=== PATIENT | male | born 1955 | race Caucasian/White ===

== ENCOUNTER → 2023-06-01 13:38 | Outpatient (BNVA) | payer MEDICARE, MEDICAID, SELFPAY | PROVIDERS: PCP Family Medicine; Referring Provider Family Medicine; Visit Provider Physician Assistant Surgical | DX: M35.1 Other overlap syndromes (principal); R91.8 Other nonspecific abnormal finding of lung field; J84.9 Interstitial pulmonary disease, unspecified; I25.10 Atherosclerotic heart disease of native coronary artery without angina pectoris; I25.84 Coronary atherosclerosis due to calcified coronary lesion | CPT/HCPCS: 99214 ==

== ENCOUNTER → 2023-08-31 00:29 | Outpatient (CLI) | payer MEDICARE, MEDICAID, SELFPAY ==
--- NOTE | 2023-08-31 08:12 | DI.NM_ITS ---
APPROVED REPORT Exam: Pharmacologic Patient Location: Out-Patient Room/Bed: Stress Nurse: Tiesha Taveras RN Ordering Provider:MARITO LOWRY, Contact Number: BMI: 32.48 Baseline Rhythm: Atrial Fibrillation Indications: CAD, BELL, Medical History Medical History: Coronary artery calcification, former smoker, RA, afib, T2DM, bipolar disorder, inte rstital lung disease, HTN, BHASKAR, obesity Cardiac Medications: Apixaban, aspirin, atorvastatin, amlodipine, hydrochlorothiazide, metformin, met oprolol succinate, omeprazole Allergies: Simvastatin, lisinopril, wellbutrin, lamotrigine Cardiac Risk Factors: Family hx, HTN, HLD, CVD, diabetes, COPD, former smoker, obesity Previous Cardiac Procedures: None Pretest Chest Pain Characteristics: None Exercise History: Sedentary Physical Disabilities: Legs Lung Sounds: Clear to auscultation Heart Sounds: Irregular Stress Test Details Test: Pharmacologic stress was paired with low level exercise. Reason for pharmacologic stress test: physical limitation. Nuclear Acquisition: Rest Tc-99m/Stress Tc-99m 1 day Rest Isotope: Tc-99m Sestamibi. Dose: 10.0 Date: 08/31/2023 Injection Time: 1050 Stress Isotope: Tc-99m Sestamibi. Dose: 30.0 Date: 08/31/2023 Injection Time: 1327 HR Resting HR Supine: 58 bpm Max Heart Rate (APMHR): 150.081212 bpm Resting HR Standin bpm Target HR (85% APMHR): 127.657728 bpm Max HR Achieved: 103 bpm % of APMHR: 68.67 Recovery HR: 59 bpm BP Resting BP Supine: 132/80 mmHg Resting BP Standin/90 mmHg Max BP: 160/69 mmHg Recovery BP: 130/80 mmHg ECG Resting ECG: Atrial Fibrillation Stress ECG: Atrial Fibrillation ST Change: Nondiagnostic low heart rate Recovery ECG: Atrial Fibrillation Recovery ST Change: Nondiagnostic low heart rate Clinical Stress Symptoms: Mild SOB Angina Score: None Rate Pressure Product: 15706 Stress ECG Conclusion 1. Resting EKG showed atrial fibrillation, diffuse ST-T abnormalities, late transition 2. Patient underwent testing using pharmacologic stress with regadenoson 3. Peak heart rate achieved was 69% of maximal predicted for age 4. The electrocardiographic portion of the test was nondiagnostic 5. See MPI report Stress Test Summary STAGE HR BP SpO2 Symptoms NOTES Supine 58 132/80 Standing 61 140/90 1 min post Lexiscan injection 90 160/69 98 Mild SOB 3 min post Lexiscan injection 60 158/89 6 min post Lexiscan injection 59 130/80 97 All symptoms resolved MPI Conclusion There is no myocardial ischemia. There is a small fixed inferobasal defect Fraction 50% Radiologist Interpretation Radiologist agrees with [facility] Interpretation. Radiologist Interpretation by: Park Munson MD Interpretation Date/Time: 09/04/2023 15:21:43
[2023-08-31] MEDS: Regadenoson 0.4 MG/5 ML SYR IVP (13:42)
== END ==
PROVIDERS: PCP Family Medicine; Visit Provider Physician Assistant Surgical
DX: I25.10 Atherosclerotic heart disease of native coronary artery without angina pectoris (principal); R06.00 Dyspnea, unspecified
CPT/HCPCS: 78452; 93016; 93017; J2785

== ENCOUNTER → 2023-10-25 12:53 | Outpatient (BNVA) | payer MEDICARE, MEDICAID, SELFPAY | PROVIDERS: PCP Family Medicine; Referring Provider Family Medicine; Visit Provider Podiatrist | DX: L60.2 Onychogryphosis (principal); E11.51 Type 2 diabetes mellitus with diabetic peripheral angiopathy without gangrene; M06.9 Rheumatoid arthritis, unspecified; Z79.01 Long term (current) use of anticoagulants; L60.3 Nail dystrophy; L85.1 Acquired keratosis [keratoderma] palmaris et plantaris; R20.8 Other disturbances of skin sensation; R09.89 Other specified symptoms and signs involving the circulatory and respiratory systems; R23.4 Changes in skin texture; R23.8 Other skin changes; L60.8 Other nail disorders; Z74.09 Other reduced mobility; M20.11 Hallux valgus (acquired), right foot; M20.12 Hallux valgus (acquired), left foot; L65.9 Nonscarring hair loss, unspecified | CPT/HCPCS: 11721 ==

== ENCOUNTER → 2023-11-28 14:38 | Outpatient (BNVA) | payer MEDICARE, MEDICAID, SELFPAY | PROVIDERS: PCP Family Medicine; Referring Provider Family Medicine; Visit Provider Physician Assistant Surgical | DX: M35.1 Other overlap syndromes (principal); J84.9 Interstitial pulmonary disease, unspecified; R91.8 Other nonspecific abnormal finding of lung field; I25.10 Atherosclerotic heart disease of native coronary artery without angina pectoris; I25.84 Coronary atherosclerosis due to calcified coronary lesion | CPT/HCPCS: 99214 ==

== ENCOUNTER → 2024-03-06 13:19 | Outpatient (BNVA) | payer MEDICARE, MEDICAID, SELFPAY | PROVIDERS: PCP Family Medicine; Referring Provider Family Medicine; Visit Provider Podiatrist | DX: E11.51 Type 2 diabetes mellitus with diabetic peripheral angiopathy without gangrene (principal); L60.2 Onychogryphosis; D64.9 Anemia, unspecified; M06.9 Rheumatoid arthritis, unspecified; B35.1 Tinea unguium; L60.3 Nail dystrophy; Z79.01 Long term (current) use of anticoagulants; R09.89 Other specified symptoms and signs involving the circulatory and respiratory systems; R20.8 Other disturbances of skin sensation; R23.8 Other skin changes; R20.2 Paresthesia of skin; L84 Corns and callosities | CPT/HCPCS: 11056; 11721 ==

== ENCOUNTER → 2024-07-17 13:00 | Outpatient (BNVA) | payer MEDICARE, MEDICAID, SELFPAY | PROVIDERS: PCP Family Medicine; Referring Provider Family Medicine; Visit Provider Podiatrist | DX: E11.51 Type 2 diabetes mellitus with diabetic peripheral angiopathy without gangrene (principal); L60.2 Onychogryphosis; D64.9 Anemia, unspecified; M06.9 Rheumatoid arthritis, unspecified; R09.89 Other specified symptoms and signs involving the circulatory and respiratory systems; R20.8 Other disturbances of skin sensation; R23.4 Changes in skin texture; R23.8 Other skin changes; L60.3 Nail dystrophy; L60.8 Other nail disorders; L85.8 Other specified epidermal thickening; R20.2 Paresthesia of skin | CPT/HCPCS: 11056; 11721 ==

== ENCOUNTER → 2024-07-25 11:45 | Outpatient (BNVA) | payer MEDICARE, MEDICAID, SELFPAY | PROVIDERS: PCP Family Medicine; Referring Provider Family Medicine; Visit Provider Physician Assistant Surgical | DX: M35.1 Other overlap syndromes (principal); R91.8 Other nonspecific abnormal finding of lung field; J84.9 Interstitial pulmonary disease, unspecified; I25.10 Atherosclerotic heart disease of native coronary artery without angina pectoris; I25.84 Coronary atherosclerosis due to calcified coronary lesion | CPT/HCPCS: 99214 ==

== ENCOUNTER → 2024-11-12 13:51 | Outpatient (BNVA) | payer MEDICARE, MEDICAID, SELFPAY | PROVIDERS: PCP Family Medicine; Referring Provider Family Medicine; Visit Provider Podiatrist | DX: L60.2 Onychogryphosis (principal); E11.51 Type 2 diabetes mellitus with diabetic peripheral angiopathy without gangrene; E11.42 Type 2 diabetes mellitus with diabetic polyneuropathy; D64.9 Anemia, unspecified; M06.9 Rheumatoid arthritis, unspecified; Z79.01 Long term (current) use of anticoagulants; R09.89 Other specified symptoms and signs involving the circulatory and respiratory systems; R20.8 Other disturbances of skin sensation; R23.4 Changes in skin texture; L60.3 Nail dystrophy; L60.8 Other nail disorders; R20.2 Paresthesia of skin | CPT/HCPCS: 11721 ==

== ENCOUNTER → 2025-01-22 13:53 | Outpatient (BNVA) | payer MEDICARE, MEDICAID, SELFPAY | PROVIDERS: PCP Family Medicine; Referring Provider Family Medicine; Visit Provider Physician Assistant Surgical | DX: M35.1 Other overlap syndromes (principal); R91.8 Other nonspecific abnormal finding of lung field; J84.9 Interstitial pulmonary disease, unspecified; I25.10 Atherosclerotic heart disease of native coronary artery without angina pectoris; I25.84 Coronary atherosclerosis due to calcified coronary lesion; Z87.891 Personal history of nicotine dependence | CPT/HCPCS: 99214 ==

== ENCOUNTER → 2025-02-17 13:56 | Outpatient (BNVA) | payer MEDICARE, MEDICAID, SELFPAY | PROVIDERS: PCP Family Medicine; Referring Provider Family Medicine; Visit Provider Podiatrist | DX: L60.2 Onychogryphosis (principal); E11.42 Type 2 diabetes mellitus with diabetic polyneuropathy; E11.51 Type 2 diabetes mellitus with diabetic peripheral angiopathy without gangrene; D64.9 Anemia, unspecified; M06.9 Rheumatoid arthritis, unspecified; Z79.01 Long term (current) use of anticoagulants; R09.89 Other specified symptoms and signs involving the circulatory and respiratory systems; R20.8 Other disturbances of skin sensation; R23.4 Changes in skin texture; R23.8 Other skin changes; L60.8 Other nail disorders; L85.8 Other specified epidermal thickening; L60.3 Nail dystrophy | CPT/HCPCS: 11721 ==

== ENCOUNTER 2025-02-28 11:39 | Day surgery (SDC) | payer MEDICARE, MEDICAID, SELFPAY ==
[2025-02-28 11:45] VITALS: BP 150/98; PULSE 76; RESP 18; TEMP 37; O2SAT 98
--- NOTE | 2025-02-28 12:03 | W.ANESPRE ---
General Info Date of Service Date Performed: 02/28/25 Height: 5 ft 9 in Weight: 102.965 kg Body Mass Index (BMI): 33.5 Surgical Procedure: Operation Date: 02/28/25 14:40 Proposed Procedure Side Surgeon p Cataract Extraction with IOL Implant Right Anoop Beckford MD Meds Allergies and Home Medications Allergies Allergy/AdvReac Type Severity Reaction Status Date / Time divalproex sodium Allergy Unknown Unknown Verified 02/28/25 12:13 lisinopril Allergy Unknown Other (See Verified 02/27/25 10:17 Comment) Muwmqbc-NOT-ShO Reductase Allergy Unknown Unknown Verified 02/28/25 12:13 Inhibitor simvastatin (From Zocor) Allergy ? elevated Verified 02/28/25 12:13 CPK levels bupropion (From Wellbutrin) AdvReac Unknown Other (See Verified 02/28/25 12:13 Comment) lamotrigine (From Lamictal) AdvReac Unknown rash Verified 02/28/25 12:13 Home Medication ?Medication ?Instructions ?Recorded alcohol swabs (Alcohol Prep Pads) pad topical 12/10/21 amlodipine 10 mg tablet 10 mg PO DAILY 12/10/21 apixaban 5 mg tablet (Eliquis) 5 mg PO BID 12/10/21 blood sugar diagnostic (Contour 12/10/21 Next Test Strips) cholecalciferol (vitamin D3) 50 50 mcg PO DAILY 12/10/21 mcg (2,000 unit) capsule folic acid 1 mg tablet 1 mg PO DAILY 12/10/21 lancets (Microlet Lancet) 12/10/21 pen needle, diabetic 31 gauge x 12/10/21 1/4 (Unifine Pentips) pen needle, diabetic 31 gauge x 12/10/21 5/16 (BD Ultra-Fine Short Pen Needle) tuberculin-allergy syringes 1 mL 12/10/21 26 gauge x 3/8 (BD Tuberculin Syringe) acetaminophen 650 mg 650 mg PO Q12H 04/26/22 tablet,extended release (Mapap Arthritis Pain) atorvastatin 20 mg tablet 20 mg PO DAILY 04/26/22 carbamazepine 200 mg 200 mg PO QPM 04/27/22 capsule,extended release [id number] (Carbatrol) hydrochlorothiazide 12.5 mg capsule 25 mg PO DAILY 08/19/22 insulin aspart U-100 100 unit/mL 12 unit subcut QACDINNER 12/01/22 (3 mL) subcutaneous pen (Novolog FlexPen U-100 Insulin aspart) insulin detemir U-100 100 unit/mL See Rx Instructions subcut BID 12/01/22 (3 mL) subcutaneous pen (Levemir FlexTouch U-100 Insulin) albuterol sulfate 90 mcg/actuation 2 puff inhalation QID PRN 11/28/23 aerosol inhaler shortness of breath or wheezing #8.5 grams cyanocobalamin (vitamin B-12) 500 500 mcg PO DAILY 07/22/24 mcg lozenges hydralazine 50 mg tablet 50 mg PO BID 07/22/24 hydroxychloroquine 200 mg tablet 200 mg PO .COMPLEX 07/22/24 metoprolol succinate 100 mg 100 mg PO DAILY 07/22/24 tablet,extended release 24 hr tirzepatide 2.5 mg/0.5 mL 2.5 mg subcut QWEEK 11/12/24 subcutaneous pen injector (Inder) omeprazole 40 mg capsule,delayed 40 mg PO DAILY 01/22/25 release fluticasone propionate 45 2 puff inhalation BID 02/04/25 mcg-salmeterol 21 mcg/actuation HFA inhaler (Advair HFA) fluticasone propionate 50 2 spray intranasal DAILY 02/04/25 mcg/actuation nasal spray,suspension losartan 100 mg tablet 100 mg PO DAILY 02/04/25 magnesium chloride 71.5 mg 71.5 mg PO DAILY 02/04/25 (magnesium chloride) tablet,delayed release (Slow-Mag) melatonin 5 mg tablet 5 mg PO HS PRN 02/04/25 methotrexate (PF) 25 mg/0.5 mL 25 mg subcut QWEEK 02/04/25 subcutaneous auto-injector risperidone 1 mg tablet 1 mg PO DAILY 02/04/25 ropinirole 0.25 mg tablet 0.25 mg PO QHS 02/17/25 Current Visit Medications: Current Medications Generic Name Dose Route Start Last Admin Trade Name Freq PRN Reason Stop Dose Admin Acetaminophen 1,000 mg 02/28/25 06:00 Acetaminophen 500 Mg Tab PO 03/30/25 05:59 Q4H PRN PRN Balanced Salt Solution 500 ml 02/28/25 06:00 Balanced Salt Soln.-Plus 500 Ml Bag OP 03/30/25 05:59 DIRECTED ANITA Miscellaneous Medication 0 ml 02/28/25 06:00 Prednisolone 1%, Moxifloxacin 0.5%, Bromfenac 0.09% 5.6ml Btl OD 03/30/25 05:59 DIRECTED [facility] Miscellaneous Medication 0 ml 02/28/25 06:00 Tropicam./Phenyleph. (1/2.5%) 5 Ml Btl OD 03/30/25 05:59 DIRECTED [facility] Tetracaine HCl 0 ml 02/28/25 06:00 Tetracaine 0.5% 4 Ml Btl OD 03/30/25 05:59 DIRECTED [facility] PFSH Active Problems Active Problems: Problem Status Onset Code Nuclear age-related cataract, right eye Acute H25.11 Increased creatine kinase level Acute R74.8 Drug-induced immunodeficiency Acute D84.821 Vitamin B12 deficiency Acute E53.8 Diabetic neuropathy Acute E11.40 Type 2 diabetes mellitus with diabetic peripheral angiopathy without gangrene Acute E11.51 Onychogryposis of toenail Acute L60.2 Coronary artery calcification Acute I25.10, I25.84 Interstitial lung disease Acute J84.9 Multiple pulmonary nodules Acute R91.8 Mixed connective tissue disease Acute M35.1 Depression Chronic F32.A Hypertension Chronic I10 Arthritis of right ankle Acute M19.071 Dysphagia Acute R13.10 Dyspnea Acute R06.00 Tachycardia Acute R00.0 Generalized hyperhidrosis Acute R61 Daytime somnolence Acute R40.0 Polyalgia Acute M79.89 Rosacea Acute L71.9 Diverticulosis of small intestine Acute K57.10 Gastritis Acute K29.70 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 History of colonoscopy (~06/2024) 06/22/15 History of lung surgery 07/26/16- Lower left lobe fine needle aspiration. H/O endoscopy (~11/2019) 04/13/17 Tobacco Smoking/Tobacco Use Status: Former Tobacco Use Vital Signs and Lab Results Vital Signs Most Recent Vital Signs in EMR: Temp Pulse Resp BP Pulse Ox 37 C 76 18 150/98 H 98 02/28/25 11:45 02/28/25 11:45 02/28/25 11:45 02/28/25 11:45 02/28/25 11:45 Imaging and Studies Imaging and Studies Study information below may be from another EMR and interpreted by another provider. Please see original notes in EMR for more complete details. Stress Test Summary: Stress: Myocardial Lexiscan 12/03/2024 negative for ischemia normal LV systolic function. Echocardiogram Summary: Echo: 12/05/2024 left ventricle of normal size wall thickness is mildly increased left ventricle size and systolic functions are normal left ventricle ejection fraction is estimated visually at 65%. There is grade 1 Bystolic to function. Left atrium is normal right atrium mildly dilated. There is no hemodynamically significant valve disease. The PASP could not be assessed on this study. 03/2023:Summary: ======== undefined undefined 1. Global systolic function is preserved with an EF of 55-60% with normal wall motion. Diastolic indices are technically indeterminate. Prior echo, 05/20/2022, EF = 65-70% with segmental wall motion abnormalities. 2. Left atrium: severely dilated. Right atrium: normal in size. 3. There is mild to moderate (1-2+/4+) mitral regurgitation. 4. There is no other hemodynamically significant valve disease. 5. There is evidence of mild pulmonary hypertension. PA pressures are elevated, estimated at 41 mmHg. Prior echo, PAP could not be obtained due to inadequate TR jet. undefined Other Study Summary:: 03/12: Worsening ILD, severe coronary artery calcification. Anesthesia Assessment and Plan Anesthesia History Personal History: No History of Anesthesia Complications Family History: No Family History of Anesthesia Complications Exercise Tolerance Exercise Tolerance: Metabolic Equivalents<4 Pertinent Negatives Pertinent Negatives: No Symptoms of GERD Cardiac & Pulmonary Exam Cardiac Exam: Normal S1/S2 Heart Sounds Pulmonary Exam: Clear Bilateral Breath Sounds Implantable Cardiac Device Does patient have a Pacemaker or an ICD?: No Airway Exam Known Difficult Airway: No Mallampati Class: 2 Mouth Opening: Normal (> 3cm) Thyromental Distance: Greater than 3 cm Neck Range of Motion: Full ROM Neck Circumference: Normal Teeth Condition: Normal Dentition ASA Classification ASA Score: ASA 3 Emergency Case?: No NPO Status NPO Status: NPO Clears >2 hours, Solids >8 hours Anesthesia Plan Resuscitation Status: Full Code Anesthesia Technique: MAC Anesthesia Airway Planned: Natural Airway Monitors Used: Standard Monitors Preoperative Comments:: Pt. presents with SOB as his baseline and some chest pain/pressure. This is non radiating, not made better or worse with movement/breathing/activity without radiation and has been ongoing for a very long time per patient. After chart review, pt. has had stress test (negative) and echo this year that was not concerning. Was seen in ED earlier in year for same complaint and had negative workup with GERD diagnosis. Discussed risk (VA/) with patient who is having ablation next week given an unclear and much history. Discussed although I do not think this is cardiac in nature requiring an ED visit now and patient agrees given chronicity of symptoms. Once he goes home if he feels worse or symptoms do worsen, despite being the same now for weeks, he should be seen in ED or call 911 which he understands.
[2025-02-28 12:05] VITALS: BMI 33.5
[2025-02-28] MEDS: Tropicam./Phenyleph. (1/2.5%) 5 ML BTL OD ×3 (12:31→12:38)
[2025-02-28] MEDS: Duovisc Viscoelastic System EACH 1 EACH (12:55)
[2025-02-28] MEDS: Lidocaine 1% Pres-Free 5 ML VIAL (12:58)
[2025-02-28] MEDS: Phenylephrine/Lidocaine (15/10) MG/ML 1 ML VIAL (12:58)
[2025-02-28] MEDS: Moxifloxacin-PF 1 MG/ML VIAL (12:58)
[2025-02-28] MEDS: Povidone-Iodine Ophth 30 ML BTL (12:59)
[2025-02-28] MEDS: Balanced Salt Soln.-PLUS 500 ML BAG OP ×2 (12:59→13:00)
[2025-02-28] MEDS: Prednisolone 1%, Moxifloxacin 0.5%, Bromfenac 0.09% 5.6ML BTL OD (13:00)
[2025-02-28] MEDS: Tetracaine 0.5% 4 ML BTL OD (13:01)
--- NOTE | 2025-02-28 13:13 | ROE_ITS ---
Operative Note Operative Note PRE-OP DIAGNOSIS: Nuclear cataract, right eye POST-OP DIAGNOSIS: same PROCEDURE: Cataract extraction using phacoemulsification with intraocular lens implant, right eye SURGEON: Anoop Beckford ANESTHESIA TYPE: Local By Surgeon and MAC Refer to Anesthesia Record ESTIMATED BLOOD LOSS: 0 PATHOLOGY: none sent COMPLICATIONS: None Patient was transported to: same day Patient's condition: stable Implants: Sp Clareon [id number] Indications: Progressive decreased vision due to cataract, right eye Procedure Description: CATARACT SURGERY OPERATIVE REPORT PREOPERATIVE DIAGNOSIS: Nuclear cataract, right eye POSTOPERATIVE DIAGNOSIS: Same OPERATION: Cataract extraction using phacoemulsification with posterior chamber intraocular lens implant, right eye. IOL: IOL Staff Therapist/Model: Sp Clareon [id number] IOL Power: + 17.0 diopters IOL Serial Number: [id number] Optic Diameter: 6.0mm Haptic/Overall Diameter: 13.0mm PHACO INFO: Sp [employer] Vision System with OZil and Active Fluidics Cumulative Dispersed Energy (CDE): 3.76 seconds SURGEON: Anoop Beckford MD, JUDE ANESTHESIA: Monitored Anesthesia Care (MAC), with local sub-tenon's anesthetic infiltration COMPLICATIONS: None SPECIMENS: None INDICATIONS FOR PROCEDURE: The patient is a 69-year-old male with history of diminished visual acuity in his right eye secondary to the development of nuclear cataract. He is significantly symptomatic that he desires cataract surgery and attempt to improve and maximize his vision. The option of cataract surgery was offered to the patient and he wished to proceed. See office notes for detailed information. PROCEDURE: The correct surgical eye was identified and marked as the right eye and the pupil was dilated in the preoperative area using mydriatics and cycloplegics. The dilated pupil size was 7.0 mm. The patient elected to proceed without oral sedation. The patient was brought to the operating room where cardiopulmonary monitoring was instituted and surgical time-out was performed, confirming the correct operative eye and IOL power. Topical anesthesia was administered and ophthalmic povidone-iodine 5% was instilled into the conjunctival fornices. The funmilayo-ocular area was prepped with Betadine 10% solution and draped in the usual sterile fashion for intraocular surgery, including an aperture drape. A Tegaderm transparent film dressing was cut in half and used to cover the lashes and lid margins. Care was taken to sequester the lashes and lid margins under the Tegaderm dressing. A lid speculum was placed between the lids of the operative eye and the Sp LuxOR Revalia operating microscope was maneuvered into position. Susie scissors were then used to make a conjunctival buttonhole approximately 6mm posterior to the limbus in the inferonasal quadrant. Blunt dissection was carried out to expose bare sclera, and a blunt-tipped sub-tenon?s anesthesia cannula was introduced and passed posteriorly along the globe where non- preserved plain lidocaine was injected into posterior sub-Tenon?s space. A sidep ort knife was used to make a paracentesis port. Intraocular phenylephrine/lidocaine was injected into the anterior chamber. The anterior chamber was then filled with viscoelastic. A keratome knife was used to construct a two--plane clear corneal tunnel extending 2.0mm into clear cornea. A flap was raised on the anterior capsule and capsulorhexis forceps were used to complete a continuous curvilinear capsulorhexis of 5.5 mm. Balanced salt solution was then used to perform cortical cleaving hydrodissection and nuclear hydrodelineation until the lens could be freely rotated within the capsular bag. The lens nucleus was then disassembled and removed within the capsular bag and iris plane using phacoemulsification. Residual cortical material was removed using the I/A handpiece. The posterior capsule was carefully polished to remove as much residual lens epithelial cells as safely possible. The capsular bag was then inflated and the anterior chamber deepened with cohesive viscoelastic. The lens implant described above was inserted into the capsular bag using the Sp Autonome Injector. A Kuglen hook was used to dial the IOL into position. Residual viscoelastic was then removed first from posterior to the IOL, then from the anterior chamber using the I/A handpiece. The lens implant was noted to center nicely within the capsular bag. The incisions were stromally hydrated, and the anterior chamber was reformed using BSS. Then 0.5cc of moxifloxacin 1.0mg/ml were injected into the capsular bag and anterior chamber. The incisions were checked with a Weck spear and found to be secure. Several drops of ophthalmic povidone-iodine 5% were then applied to the eye followed by two drops of combination steroid/NSAID/antibiotic solution. The drapes were removed and a clear plastic protective eye shield was placed over the eye. The patient was then returned to Same Day Surgery in stable condition. Date of Procedure: 02/28/25
--- NOTE | 2025-02-28 13:13 | W.PM.DSUDISC ---
Date of service: 02/28/25 Discharge Plan Disposition Patient Disposition: Home Discharge Details Attending Provider: Anoop Beckford Primary Care Provider: Lee Livingston Home Meds and New Rx's Prescriptions: No Action albuterol sulfate 90 mcg/actuation HFA aerosol inhaler 2 puff inhalation QID PRN (Reason: shortness of breath or wheezing) Qty: 8.5 3RF losartan 100 mg tablet 100 mg PO DAILY fluticasone propionate 50 mcg/actuation spray,suspension 2 spray intranasal DAILY Rx Instructions: administer into each nostril fluticasone propion-salmeterol [Advair HFA] 45-21 mcg/actuation HFA aerosol inhaler 2 puff inhalation BID melatonin 5 mg tablet 5 mg PO HS PRN Slow-Mag 71.5 mg tablet,delayed release (DR/EC) 71.5 mg PO DAILY methotrexate (PF) 25 mg/0.5 mL auto-injector 25 mg subcut QWEEK risperidone 1 mg tablet 1 mg PO DAILY ropinirole 0.25 mg tablet 0.25 mg PO QHS Rx Instructions: administer 1-3 hours before bedtime atorvastatin 20 mg tablet 20 mg PO DAILY acetaminophen [Mapap Arthritis Pain] 650 mg tablet extended release 650 mg PO Q12H insulin aspart U-100 [Novolog FlexPen U-100 Insulin] 100 unit/mL (3 mL) insulin pen 12 unit subcut QACDINNER hydralazine 50 mg tablet 50 mg PO BID cyanocobalamin (vitamin B-12) 500 mcg lozenge 500 mcg PO DAILY Rx Instructions: formula unverified; Mounjaro 2.5 mg/0.5 mL pen injector 2.5 mg subcut QWEEK Rx Instructions: dose unverified. (dose titration) started 10/18/24. omeprazole 40 mg capsule,delayed release(DR/EC) 40 mg PO DAILY alcohol swabs [Alcohol Prep Pads] Pads, Medicated topical amlodipine 10 mg tablet 10 mg PO DAILY (DME) tuberculin-allergy syringes [BD Tuberculin Syringe] 1 mL 26 gauge x 3/8 syringe See Rx Instructions .Route Rx Instructions: As directed (DME) pen needle, diabetic [BD Ultra-Fine Short Pen Needle] 31 gauge x 5/16 needle See Rx Instructions .Route Rx Instructions: As directed (DME) Contour Next Test Strips Strip See Rx Instructions .Route Rx Instructions: As directed Eliquis 5 mg tablet 5 mg PO BID folic acid 1 mg tablet 1 mg PO DAILY (DME) lancets [Microlet Lancet] Misc See Rx Instructions .Route Rx Instructions: As directed (DME) pen needle, diabetic [Unifine Pentips] 31 gauge x 1/4 needle See Rx Instructions .Route Rx Instructions: As directed cholecalciferol (vitamin D3) 50 mcg (2,000 unit) capsule 50 mcg PO DAILY carbamazepine [Carbatrol] 200 mg capsule, ER multiphase 12 hr 200 mg PO QPM hydrochlorothiazide 12.5 mg capsule 25 mg PO DAILY Levemir FlexTouch U100 Insulin 100 unit/mL (3 mL) insulin pen See Rx Instructions subcut BID Patient Comments: Pt. states 22units BID Rx Instructions: units subcutaneously twice a day; 35units subcutaneously BID; Replaces Lantus hydroxychloroquine 200 mg tablet 200 mg PO .COMPLEX Rx Instructions: (2tabs daily with food per pharmacy - 07/22/24) metoprolol succinate 100 mg tablet extended release 24 hr 100 mg PO DAILY Discharge Instructions Stand Alone Forms: [facility] Post-Op Cataract, Eun Peña (DSU), Portal Information Discharge Orders Discharge Orders: Discharge Order (Routine); Ordered 02/28/25 Ordered By: Anoop Beckford DS: Diagnosis Discharge Diagnosis (1) Nuclear age-related cataract, right eye: Status: Resolved
[2025-02-28 13:17] VITALS: BP 153/87; PULSE 79; RESP 14; TEMP 36.9; O2SAT 99
--- NOTE | 2025-02-28 13:47 | W.ANESPOSTOP ---
Postoperative Evaluation Date, Time and Location Date Performed: 02/28/25 Time Performed: 13:40 Patient Location: Day Surgery Unit Vital Signs Most Recent Imported Vital Signs: Most Recent Vital Signs Temp Pulse Resp BP Pulse Ox 36.9 C 79 14 153/87 H 99 02/28/25 13:17 02/28/25 13:17 02/28/25 13:17 02/28/25 13:17 02/28/25 13:17 Pain Score Most Recent Pain Score: Most Recent Pain Score Pain Level 0 02/28/25 13:17 Assessment Mental Status: Awake (Alert & Oriented to Patient Baseline) Airway and Respiratory Function: Patent airway with normal (patient baseline) respiratory exam Cardiovascular Function: Hemodynamically Stable Hydration Status: Adequately Hydrated Nausea & Vomiting: No Nausea or Vomiting Pain: Pt. Denies Any Pain Peripheral Nerve Block: Patient did not receive a nerve block Postoperative Comments:: Pt. doing well, same unchanged baseline complaints.
== END 2025-02-28 13:37 | disposition home or self-care (01) ==
LOC: SUR 11:39
PROVIDERS: PCP Family Medicine; Visit Provider Ophthalmology
PROC: (CPT 66984; principal; 2025-02-28 14:30)
DX: H25.11 Age-related nuclear cataract, right eye (principal)
CPT/HCPCS: 66984; 00123; V2632; J2003

== ENCOUNTER 2025-03-07 07:59 | Day surgery (SDC) | payer MEDICARE, MEDICAID, SELFPAY ==
[2025-03-07 08:31] VITALS: BP 157/80; PULSE 62; RESP 16; TEMP 35.9; O2SAT 98
[2025-03-07] MEDS: Tropicam./Phenyleph. (1/2.5%) 5 ML BTL OS ×3 (09:01→09:09)
--- NOTE | 2025-03-07 09:23 | W.ANESPRE ---
General Info Date of Service Date Performed: 03/07/25 Height: 5 ft 9 in Weight: 102.9 kg Body Mass Index (BMI): 33.5 Surgical Procedure: Operation Date: 03/07/25 10:40 Proposed Procedure Side Surgeon p Cataract Extraction with IOL Implant Left Anoop Beckford MD Meds Allergies and Home Medications Allergies Allergy/AdvReac Type Severity Reaction Status Date / Time divalproex sodium Allergy Unknown Unknown Verified 03/07/25 08:44 lisinopril Allergy Unknown Other (See Verified 03/07/25 08:44 Comment) Duxaxur-MGG-CdW Reductase Allergy Unknown Unknown Verified 03/07/25 08:44 Inhibitor simvastatin (From Zocor) Allergy ? elevated Verified 03/07/25 08:44 CPK levels bupropion (From Wellbutrin) AdvReac Unknown Other (See Verified 03/07/25 08:44 Comment) lamotrigine (From Lamictal) AdvReac Unknown rash Verified 03/07/25 08:44 Home Medication ?Medication ?Instructions ?Recorded alcohol swabs (Alcohol Prep Pads) pad topical 12/10/21 amlodipine 10 mg tablet 10 mg PO DAILY 12/10/21 apixaban 5 mg tablet (Eliquis) 5 mg PO BID 12/10/21 blood sugar diagnostic (Contour 12/10/21 Next Test Strips) cholecalciferol (vitamin D3) 50 50 mcg PO DAILY 12/10/21 mcg (2,000 unit) capsule folic acid 1 mg tablet 1 mg PO DAILY 12/10/21 lancets (Microlet Lancet) 12/10/21 pen needle, diabetic 31 gauge x 12/10/21 1/4 (Unifine Pentips) pen needle, diabetic 31 gauge x 12/10/21 5/16 (BD Ultra-Fine Short Pen Needle) tuberculin-allergy syringes 1 mL 12/10/21 26 gauge x 3/8 (BD Tuberculin Syringe) acetaminophen 650 mg 650 mg PO Q12H 04/26/22 tablet,extended release (Mapap Arthritis Pain) atorvastatin 20 mg tablet 20 mg PO DAILY 04/26/22 carbamazepine 200 mg 200 mg PO QPM 04/27/22 capsule,extended release [id number] (Carbatrol) hydrochlorothiazide 12.5 mg capsule 25 mg PO DAILY 08/19/22 insulin aspart U-100 100 unit/mL 12 unit subcut QACDINNER 12/01/22 (3 mL) subcutaneous pen (Novolog FlexPen U-100 Insulin aspart) insulin detemir U-100 100 unit/mL See Rx Instructions subcut BID 12/01/22 (3 mL) subcutaneous pen (Levemir FlexTouch U-100 Insulin) albuterol sulfate 90 mcg/actuation 2 puff inhalation QID PRN 11/28/23 aerosol inhaler shortness of breath or wheezing #8.5 grams cyanocobalamin (vitamin B-12) 500 500 mcg PO DAILY 07/22/24 mcg lozenges hydralazine 50 mg tablet 50 mg PO BID 07/22/24 hydroxychloroquine 200 mg tablet 200 mg PO .COMPLEX 07/22/24 metoprolol succinate 100 mg 100 mg PO DAILY 07/22/24 tablet,extended release 24 hr tirzepatide 2.5 mg/0.5 mL 2.5 mg subcut QWEEK 11/12/24 subcutaneous pen injector (Inder) omeprazole 40 mg capsule,delayed 40 mg PO DAILY 01/22/25 release fluticasone propionate 45 2 puff inhalation BID 02/04/25 mcg-salmeterol 21 mcg/actuation HFA inhaler (Advair HFA) fluticasone propionate 50 2 spray intranasal DAILY 02/04/25 mcg/actuation nasal spray,suspension losartan 100 mg tablet 100 mg PO DAILY 02/04/25 magnesium chloride 71.5 mg 71.5 mg PO DAILY 02/04/25 (magnesium chloride) tablet,delayed release (Slow-Mag) melatonin 5 mg tablet 5 mg PO HS PRN 02/04/25 methotrexate (PF) 25 mg/0.5 mL 25 mg subcut QWEEK 02/04/25 subcutaneous auto-injector risperidone 1 mg tablet 1 mg PO DAILY 02/04/25 ropinirole 0.25 mg tablet 0.25 mg PO QHS 02/17/25 Current Visit Medications: Current Medications Generic Name Dose Route Start Last Admin Trade Name Freq PRN Reason Stop Dose Admin Acetaminophen 1,000 mg 03/07/25 06:00 Acetaminophen 500 Mg Tab PO 04/06/25 05:59 Q4H PRN PRN Balanced Salt Solution 500 ml 03/07/25 06:00 Balanced Salt Soln.-Plus 500 Ml Bag OP 04/06/25 05:59 DIRECTED ANITA Miscellaneous Medication 0 ml 03/07/25 06:00 Prednisolone 1%, Moxifloxacin 0.5%, Bromfenac 0.09% 5.6ml Btl OS 04/06/25 05:59 DIRECTED ANITA Miscellaneous Medication 0 ml 03/07/25 06:00 03/07/25 09:09 Tropicam./Phenyleph. (1/2.5%) 5 Ml Btl OS 04/06/25 05:59 1 drp DIRECTED ANITA Administration Tetracaine HCl 0 ml 03/07/25 06:00 Tetracaine 0.5% 4 Ml Btl OS 04/06/25 05:59 DIRECTED ANITA PFSH Active Problems Active Problems: Problem Status Onset Code Nuclear age-related cataract, left eye Acute H25.12 Nuclear age-related cataract, right eye Resolved H25.11 Increased creatine kinase level Acute R74.8 Drug-induced immunodeficiency Acute D84.821 Vitamin B12 deficiency Acute E53.8 Diabetic neuropathy Acute E11.40 Type 2 diabetes mellitus with diabetic peripheral angiopathy without gangrene Acute E11.51 Onychogryposis of toenail Acute L60.2 Coronary artery calcification Acute I25.10, I25.84 Interstitial lung disease Acute J84.9 Multiple pulmonary nodules Acute R91.8 Mixed connective tissue disease Acute M35.1 Depression Chronic F32.A Hypertension Chronic I10 Arthritis of right ankle Acute M19.071 Dysphagia Acute R13.10 Dyspnea Acute R06.00 Tachycardia Acute R00.0 Generalized hyperhidrosis Acute R61 Daytime somnolence Acute R40.0 Polyalgia Acute M79.89 Rosacea Acute L71.9 Diverticulosis of small intestine Acute K57.10 Gastritis Acute K29.70 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 History of colonoscopy (~06/2024) 06/22/15 History of lung surgery 07/26/16- Lower left lobe fine needle aspiration. H/O endoscopy (~11/2019) 04/13/17 Tobacco Smoking/Tobacco Use Status: Former Tobacco Use Passive smoking exposure: Yes Alcohol Alcohol Intake: former Substance Use Substance use: Never Substance use type: does not use Vital Signs and Lab Results Vital Signs Most Recent Vital Signs in EMR: Most Recent Vital Signs Temp Pulse Resp BP Pulse Ox 35.9 C L 62 16 157/80 H 98 03/07/25 08:31 03/07/25 08:31 03/07/25 08:31 03/07/25 08:31 03/07/25 08:31 Point of Care Results Point of Care Results: Finger Stick Blood Glucose 100 03/07/25 08:27 Imaging and Studies Imaging and Studies Study information below may be from another EMR and interpreted by another provider. Please see original notes in EMR for more complete details. Stress Test Summary: Stress: Myocardial Lexiscan 12/03/2024 negative for ischemia normal LV systolic function. Echocardiogram Summary: Echo: 12/05/2024 left ventricle of normal size wall thickness is mildly increased left ventricle size and systolic functions are normal left ventricle ejection fraction is estimated visually at 65%. There is grade 1 Bystolic to function. Left atrium is normal right atrium mildly dilated. There is no hemodynamically significant valve disease. The PASP could not be assessed on this study. 03/2023:Summary: ======== undefined undefined 1. Global systolic function is preserved with an EF of 55-60% with normal wall motion. Diastolic indices are technically indeterminate. Prior echo, 05/20/2022, EF = 65-70% with segmental wall motion abnormalities. 2. Left atrium: severely dilated. Right atrium: normal in size. 3. There is mild to moderate (1-2+/4+) mitral regurgitation. 4. There is no other hemodynamically significant valve disease. 5. There is evidence of mild pulmonary hypertension. PA pressures are elevated, estimated at 41 mmHg. Prior echo, PAP could not be obtained due to inadequate TR jet. undefined Other Study Summary:: 03/12: Worsening ILD, severe coronary artery calcification. Anesthesia Assessment and Plan Anesthesia History Personal History: No History of Anesthesia Complications Family History: No Family History of Anesthesia Complications Exercise Tolerance Exercise Tolerance: Metabolic Equivalents<4 Pertinent Negatives Pertinent Negatives: No Symptoms of GERD Cardiac & Pulmonary Exam Cardiac Exam: Normal S1/S2 Heart Sounds Pulmonary Exam: Clear Bilateral Breath Sounds Implantable Cardiac Device Does patient have a Pacemaker or an ICD?: No Airway Exam Known Difficult Airway: No Mallampati Class: 2 Mouth Opening: Normal (> 3cm) Thyromental Distance: Greater than 3 cm Neck Range of Motion: Full ROM Neck Circumference: Normal Teeth Condition: Generalized Poor Dentition and Loose or Chipped Airway Comments: narrow upper palate ASA Classification ASA Score: ASA 3 Emergency Case?: No NPO Status NPO Status: NPO Clears >2 hours, Solids >8 hours Anesthesia Plan Resuscitation Status: Full Code Anesthesia Technique: MAC Anesthesia Airway Planned: Natural Airway Monitors Used: Standard Monitors Preoperative Comments:: From prior anesthetic: Pt. presents with SOB as his baseline and some chest pain/pressure. This is non radiating, not made better or worse with movement/breathing/activity without radiation and has been ongoing for a very long time per patient. After chart review, pt. has had stress test (negative) and echo this year that was not concerning. Was seen in ED earlier in year for same complaint and had negative workup with GERD diagnosis. Discussed risk (SC/) with patient who is having ablation next week given an unclear and much history. Discussed although I do not think this is cardiac in nature requiring an ED visit now and patient agrees given chronicity of symptoms. Once he goes home if he feels worse or symptoms do worsen, despite being the same now for weeks, he should be seen in ED or call 911 which he understands. I did reiterate this discussion with the patient today. We also discussed his taking his Mounjaro on 03/05 and his elequis on 03/06. I discussed this with Dr. Beckford, who is not concerned about the patients elequis timing. I discussed with Flakito that we will not be giving any sedation for his cataract today, just like last time, as he has not fully held his mounjaro and he does not have an appropriate adult with him today (he came by local taxi service). Patient expressed his understanding of the additional risks today and stated in spite of these risks (same as above note from prior anesthetic, and his increased risk of aspiration if he were to have a lowered level of consciousness) he would like to proceed today.
[2025-03-07 09:58] VITALS: BMI 33.5
[2025-03-07] MEDS: Duovisc Viscoelastic System EACH 1 EACH (10:12)
[2025-03-07] MEDS: Lidocaine 1% Pres-Free 5 ML VIAL (10:12)
[2025-03-07] MEDS: Moxifloxacin-PF 1 MG/ML VIAL (10:13)
[2025-03-07] MEDS: Phenylephrine/Lidocaine (15/10) MG/ML 1 ML VIAL (10:14)
[2025-03-07] MEDS: Povidone-Iodine Ophth 30 ML BTL (10:18)
[2025-03-07] MEDS: Balanced Salt Soln.-PLUS 500 ML BAG OP (10:19)
[2025-03-07] MEDS: Prednisolone 1%, Moxifloxacin 0.5%, Bromfenac 0.09% 5.6ML BTL OS (10:19)
[2025-03-07] MEDS: Tetracaine 0.5% 4 ML BTL OS (10:20)
[2025-03-07 10:26] VITALS: BP 150/89; PULSE 64; RESP 16; TEMP 36.6; O2SAT 97
--- NOTE | 2025-03-07 10:27 | W.PM.DSUDISC ---
Date of service: 03/07/25 Discharge Plan Disposition Patient Disposition: Home Discharge Details Attending Provider: Anoop Beckford Primary Care Provider: Lee Livingston Home Meds and New Rx's Prescriptions: No Action albuterol sulfate 90 mcg/actuation HFA aerosol inhaler 2 puff inhalation QID PRN (Reason: shortness of breath or wheezing) Qty: 8.5 3RF losartan 100 mg tablet 100 mg PO DAILY fluticasone propionate 50 mcg/actuation spray,suspension 2 spray intranasal DAILY Rx Instructions: administer into each nostril fluticasone propion-salmeterol [Advair HFA] 45-21 mcg/actuation HFA aerosol inhaler 2 puff inhalation BID melatonin 5 mg tablet 5 mg PO HS PRN Slow-Mag 71.5 mg tablet,delayed release (DR/EC) 71.5 mg PO DAILY methotrexate (PF) 25 mg/0.5 mL auto-injector 25 mg subcut QWEEK risperidone 1 mg tablet 1 mg PO DAILY ropinirole 0.25 mg tablet 0.25 mg PO QHS Rx Instructions: administer 1-3 hours before bedtime atorvastatin 20 mg tablet 20 mg PO DAILY acetaminophen [Mapap Arthritis Pain] 650 mg tablet extended release 650 mg PO Q12H insulin aspart U-100 [Novolog FlexPen U-100 Insulin] 100 unit/mL (3 mL) insulin pen 12 unit subcut QACDINNER hydralazine 50 mg tablet 50 mg PO BID cyanocobalamin (vitamin B-12) 500 mcg lozenge 500 mcg PO DAILY Rx Instructions: formula unverified; Mounjaro 2.5 mg/0.5 mL pen injector 2.5 mg subcut QWEEK Rx Instructions: dose unverified. (dose titration) started 10/18/24. omeprazole 40 mg capsule,delayed release(DR/EC) 40 mg PO DAILY alcohol swabs [Alcohol Prep Pads] Pads, Medicated topical amlodipine 10 mg tablet 10 mg PO DAILY (DME) tuberculin-allergy syringes [BD Tuberculin Syringe] 1 mL 26 gauge x 3/8 syringe See Rx Instructions .Route Rx Instructions: As directed (DME) pen needle, diabetic [BD Ultra-Fine Short Pen Needle] 31 gauge x 5/16 needle See Rx Instructions .Route Rx Instructions: As directed (DME) Contour Next Test Strips Strip See Rx Instructions .Route Rx Instructions: As directed Eliquis 5 mg tablet 5 mg PO BID folic acid 1 mg tablet 1 mg PO DAILY (DME) lancets [Microlet Lancet] Misc See Rx Instructions .Route Rx Instructions: As directed (DME) pen needle, diabetic [Unifine Pentips] 31 gauge x 1/4 needle See Rx Instructions .Route Rx Instructions: As directed cholecalciferol (vitamin D3) 50 mcg (2,000 unit) capsule 50 mcg PO DAILY carbamazepine [Carbatrol] 200 mg capsule, ER multiphase 12 hr 200 mg PO QPM hydrochlorothiazide 12.5 mg capsule 25 mg PO DAILY Levemir FlexTouch U100 Insulin 100 unit/mL (3 mL) insulin pen See Rx Instructions subcut BID Patient Comments: Pt. states 22units BID Rx Instructions: units subcutaneously twice a day; 35units subcutaneously BID; Replaces Lantus hydroxychloroquine 200 mg tablet 200 mg PO .COMPLEX Rx Instructions: (2tabs daily with food per pharmacy - 07/22/24) metoprolol succinate 100 mg tablet extended release 24 hr 100 mg PO DAILY Discharge Instructions Stand Alone Forms: [facility] Post-Op Cataract, Eun Peña (DSU), Portal Information Discharge Orders Discharge Orders: Discharge Order (Routine); Ordered 03/07/25 Ordered By: Anoop Beckford DS: Diagnosis Discharge Diagnosis (1) Nuclear age-related cataract, left eye: Status: Resolved
--- NOTE | 2025-03-07 10:29 | ROE_ITS ---
Operative Note Operative Note PRE-OP DIAGNOSIS: Nuclear cataract, left eye POST-OP DIAGNOSIS: same PROCEDURE: Cataract extraction using phacoemulsification with intraocular lens implant, left eye SURGEON: Anoop Beckford ANESTHESIA TYPE: Local By Surgeon and MAC Refer to Anesthesia Record PATHOLOGY: none sent COMPLICATIONS: None Patient was transported to: same day Patient's condition: stable Implants: Sp Clareon [id number] Indications: Progressive decreased vision due to cataract, left eye Procedure Description: CATARACT SURGERY OPERATIVE REPORT PREOPERATIVE DIAGNOSIS: Nuclear cataract, left eye POSTOPERATIVE DIAGNOSIS: Same OPERATION: Cataract extraction using phacoemulsification with posterior chamber intraocular lens implant, left eye. IOL: IOL Ground Crew Linesman/Model: Sp Clareon [id number] IOL Power: + 16.5 fraction diopters IOL Serial Number: [id number] Optic Diameter: 6.0mm Haptic/Overall Diameter: 13.0mm PHACO INFO: Sp [employer] Vision System with OZil and Active Fluidics Cumulative Dispersed Energy (CDE): 5.78 seconds SURGEON: Anoop Beckford MD, JUDE ANESTHESIA: Monitored Anesthesia Care (MAC), with local sub-tenon's anesthetic infiltration COMPLICATIONS: None SPECIMENS: None INDICATIONS FOR PROCEDURE: The patient is a 69-year-old male with history of diminished visual acuity in both eyes secondary to the amount of bilateral nuclear cataract.: Significantly symptomatic and he desires cataract surgery to attempt to improve and maximize his vision. He is already undergone cataract surgery in the right eye and is doing well postoperatively. He now presents for cataract surgery right eye. See office notes for detailed information. PROCEDURE: The correct surgical eye was identified and marked as the left eye and the pupil was dilated in the preoperative area using mydriatics and cycloplegics. The dilated pupil size was 8.0 mm. The patient elected to proceed without oral sedation. The patient was brought to the operating room where cardiopulmonary monitoring was instituted and surgical time-out was performed, confirming the correct operative eye and IOL power. Topical anesthesia was administered and ophthalmic povidone-iodine 5% was instilled into the conjunctival fornices. The funmilayo-ocular area was prepped with Betadine 10% solution and draped in the usual sterile fashion for intraocular surgery, including an aperture drape. A Tegaderm transparent film dressing was cut in half and used to cover the lashes and lid margins. Care was taken to sequester the lashes and lid margins under the Tegaderm dressing. A lid speculum was placed between the lids of the operative eye and the Sp LuxOR Revalia operating microscope was maneuvered into position. Susie scissors were then used to make a conjunctival buttonhole approximately 6mm posterior to the limbus in the inferonasal quadrant. Blunt dissection was carried out to expose bare sclera, and a blunt-tipped sub-tenon?s anesthesia cannula was introduced and passed posteriorly along the globe where non- preserved plain lidocaine was injected into posterior sub-Tenon?s space. A sideport knife was used to make a paracentesis port. Intraocular phenylephrine/lidocaine was injected into the anterior chamber. The anterior chamber was then filled with viscoelastic. A keratome knife was used construct a two-plane clear corneal tunnel extending 2.0mm into clear cornea. A flap was raised on the anterior capsule and capsulorhexis forceps were used to complete a continuous curvilinear capsulorhexis of 6.0 mm. Balanced salt solution was then used to perform cortical cleaving hydrodissection and nuclear hydrodelineation until the lens could be freely rotated within the capsular bag. The lens nucleus was then disassembled and removed within the capsular bag and iris plane using phacoemulsification. Residual cortical material was removed using the irrigation/aspiration handpiece. The posterior capsule was carefully polished to remove as much residual lens epithelial cells as safely possible. The capsular bag was then inflated and the anterior chamber deepened with viscoelastic. The lens implant described above was inserted into the capsular bag using the Sp Autonome Injector. A Kuglen hook was used to dial the IOL into position. Residual viscoelastic was then removed first from posterior to the IOL, then from the anterior chamber using the I/A handpiece. The lens implant was noted to center nicely within the capsular bag. The incisions were stromally hydrated, and the anterior chamber was reformed using BSS. Then 0.5cc of moxifloxacin 1.0mg/ml were injected into the capsular bag and anterior chamber. The incisions were checked with a Weck spear and found to be secure. Several drops of ophthalmic povidone-iodine 5% were then applied to the eye followed by two drops of combination steroid/NSAID/antibiotic solution. The drapes were removed and a clear plastic protective eye shield was placed over the eye. The patient was then returned to Same Day Surgery in stable condition. Date of Procedure: 03/07/25
--- NOTE | 2025-03-07 11:11 | W.ANESPOSTOP ---
Postoperative Evaluation Date, Time and Location Date Performed: 03/07/25 Time Performed: 11:11 Patient Location: Day Surgery Unit Vital Signs Most Recent Imported Vital Signs: Most Recent Vital Signs Temp Pulse Resp BP Pulse Ox 36.6 C 64 16 150/89 H 97 03/07/25 10:26 03/07/25 10:26 03/07/25 10:26 03/07/25 10:26 03/07/25 10:26 Pain Score Most Recent Pain Score: Most Recent Pain Score Pain Level 0 03/07/25 10:26 Assessment Mental Status: Awake (Alert & Oriented to Patient Baseline) Airway and Respiratory Function: Patent airway with normal (patient baseline) respiratory exam Cardiovascular Function: Hemodynamically Stable Hydration Status: Adequately Hydrated Nausea & Vomiting: No Nausea or Vomiting Pain: Pt. Denies Any Pain Peripheral Nerve Block: Other (Local by Dr. Beckford)
== END 2025-03-07 11:28 | disposition home or self-care (01) ==
PROVIDERS: PCP Family Medicine; Visit Provider Ophthalmology
PROC: (CPT 66984; principal; 2025-03-07 10:30)
DX: H25.12 Age-related nuclear cataract, left eye (principal); Z98.41 Cataract extraction status, right eye
CPT/HCPCS: 66984; 00123; V2632; J2003